=== PATIENT | female | born 1990 | race Caucasian/White ===

== ENCOUNTER 2021-01-10 13:29 | Inpatient (IN) | payer MEDICAID, OTHER ==
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
[2021-01-10 15:09] LABS: Amphetamine Screen,Urine Detected (NotDetected); Barbiturate Screen,Urine Not Detected (NotDetected); Benzodiazepines Screen,Urine Not Detected (NotDetected); Cocaine Screen,Urine Not Detected (NotDetected); Methadone Screen, Urine Not Detected (NotDetected); Opiate Screen,Urine Not Detected (NotDetected); Oxycodone Screen, Urine Not Detected (NotDetected); Phencyclidine Screen,Urine Not Detected (NotDetected); Tricyclic Antidepressant,Urine Not Detected (NotDetected); Urn Cannabinoid Scrn Detected (NotDetected)
[2021-01-10] MEDS ORDERED: LORazepam 1 MG TAB PO PRN (20:36)
[2021-01-10] MEDS ORDERED: MAG HYDROX/AL HYDROX/SIMETH 30 ML CUP PO PRN (20:36)
[2021-01-10] MEDS ORDERED: MAGNESIUM HYDROXIDE 2,400 MG/10 ML CUP PO PRN (20:36)
[2021-01-10] MEDS ORDERED: ACETAMINOPHEN TAB 325 MG TAB PO PRN (20:36)
[2021-01-10] MEDS ORDERED: LORazepam 2 MG/ML INJ IM PRN (20:56)
[2021-01-10] MEDS ORDERED: HALOPERIDOL LACTATE 5 MG/ML 1 ML VIAL IM PRN (20:57)
[2021-01-10 22:00] LABS: Appearance,Urine Cloudy (Clear); Bilirubin,Urine Negative (Negative); Blood,Urine Negative (Negative); Calcium Oxalate Crystals,Urine Many /hpf; Color,Urine Yellow; Glucose,Urine (UA) Negative (Negative); Ketones,Urine Negative (Negative); Leukocyte Esterase,Urine Negative (Negative); Mucus,Urine Occasional /hpf; Nitrite,Urine Negative (Negative); PH, Urine 5.5 (5.0-8.0); Protein,Urine Negative (Negative); Specific Gravity,Urine 1.029 (1.001-1.035); Squamous Epithelial Cell,Urine 13 /hpf (0-4); Urobilinogen,Urine <2.0 mg/dL (<2.0); WBC,Urine 3 /hpf (0-5)
[2021-01-11] MEDS: NICOTINE 14MG/24HR PATCH TRANSDERM SCH (08:02)
[2021-01-11 09:20] LABS: Basophils # (A) 0.1 k/uL (0-0.2); Basophils % (A) 1 %; Eosinophils # (A) 0.4 k/uL (0-0.7); Eosinophils % (A) 7 %; HCT 38.5 % (34.0-46.0); HGB 12.5 gm/dL (11.4-16.0); Lymphocytes # (A) 1.8 k/uL (1.0-4.8); Lymphocytes % (A) 30 %; MCH 30.3 pg (25.0-35.0); MCHC 32.5 g/dL (31.0-37.0); MCV 93.2 fL (80.0-100.0); Mean Platelet Volume 7.6; Monocytes # (A) 0.3 k/uL (0-1.0); Monocytes % (A) 5 %; Neutrophils # (A) 3.4 k/uL (1.3-7.7); Neutrophils % (A) 56 %; Platelet Count 283 k/uL (150-450); RBC 4.12 m/uL (3.80-5.40); RDW 13.6 % (11.5-15.5)
[2021-01-11 09:36] LABS: ALT 19 U/L (4-34); AST 24 U/L (14-36); African American GFR (CKD) >90 (>60 ml/min/1.73 sqM); Albumin 3.7 g/dL (3.5-5.0); Alkaline Phosphatase 59 U/L (38-126); Anion Gap 7 mmol/L; Blood Urea Nitrogen 11 mg/dL (7-17); Calcium 9.2 mg/dL (8.4-10.2); Carbon Dioxide 22 mmol/L (22-30); Chloride 107 mmol/L (98-107); Glucose 94 mg/dL (74-99); Non-African American GFR(CKD) >90 (>60 ml/min/1.73 sqM); Potassium 4.4 mmol/L (3.5-5.1); Sodium 136 mmol/L (137-145); Total Bilirubin 0.2 mg/dL (0.2-1.3); Total Protein 6.6 g/dL (6.3-8.2)
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
[2021-01-11 20:24] LABS: Chol/HDL Ratio 3.22 Ratio; LDL Cholesterol,Calculated 55.3 mg/dL (0.0-131.0)
[2021-01-11] MEDS ORDERED: SERTRALINE 50 MG TAB PO SCH (21:00)
[2021-01-12] MEDS: NICOTINE 14MG/24HR PATCH TRANSDERM SCH (08:27)
--- NOTE | 2021-01-12 11:39 | P.PN ---
Progress Note - Text Progress Note Date: 01/12/21 Clinical Problems: Substance use mood disorder, methamphetamine use disorder severe, methamphetamine withdrawal, cannabis use disorder moderate, opiate use disorder in early remission, cocaine use disorder in early remission, alcohol use disorder unspecified, history of use of LSD, psilocybin, ketamine, rule out bipolar disorder, rule out major depressive disorder, rule out cluster B personality disorder Interim history: I reviewed the medical record and interviewed the patient. She was emotionally labile, angry and tearful. She minimized her substance abuse problems and expressed frustration that we perceive her "only as a drug addict." She alleged that she has only been using "hard drugs" for the past 6 months. She perseverated on needing medications that would help stabilize her life and alleged that most effective were medications prescribed by the adolescent psychiatrist and included Vyvanse, risperidone, Tegretol and Klonopin. She understands that we are reluctant prescribers psychostimulants given her history of methamphetamine use. She is overwhelmed with her multiple psychosocial problems. She has no income or stable housing. She has no means of transportation. 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 She can't keep her appointments with [facility] to continue her psychiatric medications because she has no transportation, no phone or watch to assist her in keeping the appointments. She talked about using methamphetamine because it was "the only drug" that has been effective in helping her concentrate and focus. She continues to feel depressed, anxious, fatigued and overwhelmed by her multiple psychosocial problems. Review treatment options and agreed to a trial of Tegretol and risperidone. She requested to discontinue Zoloft because of not been effective in the past in treating her depression or leveling her mood. Mental status exam: She presented as a casually groomed 31-year-old female who was casually dressed. She made eye contact and attended to the interview. She had slight psychomotor retardation but no abnormal involuntary movements. Her speech was spontaneous, slightly pressured and consistent with her mood. Her affect was labile and she cried during the interview. She denied suicidal ideation, wishes or homicidal ideation. She expressed feelings of hopelessness, helplessness and worthlessness. She ruminated about her multiple psychosocial problems and how the treatment team is perceiving her. She did not express ideas reference, paranoid ideation or delusions. Her thinking was abstract but her associations were coherent, logical and goal directed. She denies hallucinations did not appear to be responding to internal stimuli. Assessment: She is continuing to have signs and symptoms of methamphetamine withdrawal with mood lability, fatigue and increased need for sleep. She has history of psychiatric treatment prior to the onset of drugs with diagnoses including ADHD, oppositional defiant disorder and bipolar illness. Plan: Continue inpatient treatment. Safety precautions. Discontinue Zoloft. Begin Tegretol 200 mg twice a day and Risperdal 0.5 mg twice a day; titrate medications according to clinical response and tolerance. Continue Ativan and/or Haldol when necessary for anxiety, agitation acute psychosis. Obtain collateral information from her mother. Encourage participation in therapy groups and activities. Evaluate clinical status response to treatment daily basis.
[2021-01-12] MEDS: carBAMazepine 200 MG TAB PO SCH (20:39)
[2021-01-12] MEDS: risperiDONE 0.25 MG TAB PO SCH (20:39)
--- NOTE | 2021-01-13 00:02 | P.MDCNMH ---
History of Present Illness H&P Date: 01/12/21 Chief Complaint: Medical evaluation 31-year-old female with significant past medical history Patient is here for evaluation regarding depression and suicidal ideation. She admits to using amphetamine admits to tobacco smoking denies any alcohol use. Patient is homeless She is currently complaining of symptoms suggestive of carpal tunnel syndrome and bilateral hands with pain mostly at night shooting to the fingers. Otherwise denies any fevers chills nausea vomiting coughing shortness of breath or chest pain denies any abdominal pain changes in her urinary or bowel habits Review of Systems Pertinent positives as noted in HPI. All other systems were reviewed and are negative Past Medical History Past Medical History: No Reported History Additional Past Medical History / Comment(s): ectopic History of Any Multi-Drug Resistant Organisms: None Reported Past Surgical History: No Surgical Hx Reported Additional Past Surgical History / Comment(s): fallopian tube removed Past Anesthesia/Blood Transfusion Reactions: No Reported Reaction Smoking Status: Current every day smoker - Past Family History family Family Medical History: No Reported History Medications and Allergies Home Medications Medication Instructions Recorded Confirmed Type Divalproex ER [Depakote ER] 250 mg PO TID@0900,1300,1700 01/10/21 01/10/21 History OLANZapine [ZyPREXA] 10 mg PO DAILY@2100 01/10/21 01/10/21 History Sertraline HCl [Zoloft] 25 mg PO DAILY@0900 01/10/21 01/10/21 History traZODone HCL [Desyrel] 100 mg PO HS 01/10/21 01/10/21 History Allergies Allergy/AdvReac Type Severity Reaction Status Date / Time No Known Allergies Allergy Verified 01/10/21 21:46 Physical Exam Vitals: Vital Signs Temp Pulse Resp BP 01/12/21 06:39 98.1 F 60 14 126/74 Constitutional: No acute distress, conversant, pleasant Eyes: Anicteric sclerae, moist conjunctiva, Pupils equal round reactive to light ENMT: NC/AT Oropharynx clear, no erythema, or exudates Neck: Supple, FROM, no masses, or JVD No carotid bruits No thyromegaly Lungs: Clear to auscultation Clear to percussion Normal respiratory effort, no accessory muscle use Cardiovascular: Heart regular in rate and rhythm, No murmurs, gallops, or rubs No peripheral edema Abdominal: Soft Nontender, no guarding, rebound or rigidity Abdomen moving with respiration Normoactive bowel sounds No hepatomegaly, No splenomegaly No palpable mass No abdominal wall hernia noted Skin: Normal temperature, tone, texture, turgor No induration No subcutaneous nodules No rash, lesions No ulcers Extremities: No digital cyanosis No clubbing Pedal pulses intact and symmetrical Radial pulses intact and symmetrical No calf tenderness Psychiatric: Alert and oriented to person, place and time Appropriate affect fair judgement Neuro Muscles Strength 5/5 in all 4 extremities Sensation to light touch grossly present throughout Cranial nerves II-XII grossly intact No focal sensory deficits Patient had positive [employer]'s sign in [place] sign on bilateral hands Lymphatics: no palpable cervical or supraclavicular , or inguinal lymph nodes Cranial Nerve Examination - Cranial Nerves Cranial Nerve II- Optic: Intact Cranial Nerve III- Oculomotor: Intact Cranial Nerve IV- Trochlear: Intact Cranial Nerve V- Trigeminal: Intact Cranial Nerve - Abducens: Intact Cranial Nerve VII- Facial: Intact Cranial Nerve VIII- Auditory: Intact Cranial Nerve IX- Glossopharyngeal: Intact Cranial Nerve X- Vagus: Intact Cranial Nerve XI- Accessory: Intact Cranial Nerve XII- Hypoglossal: Intact Results CBC & Chem 7: 01/11/21 08:16 01/11/21 08:16 Assessment and Plan Assessment: Depression and suicidal ideation Management per psych Carpal tunnel syndrome bilateral hands Consider wrist splint every night bilateral hands Labs reviewed Thank you for allowing us to participate in the care of this patient. We will follow peripherally. Do not hesitate to contact us with questions. Someone can be reached from the [facility] hospitalist group at all hours of the day at [phone].
[2021-01-13] MEDS: risperiDONE 0.25 MG TAB PO SCH ×2 (08:16→20:45)
[2021-01-13] MEDS: NICOTINE 14MG/24HR PATCH TRANSDERM SCH ×2 (08:16→08:19)
[2021-01-13] MEDS: carBAMazepine 200 MG TAB PO SCH ×3 (08:16→20:45)
[2021-01-13] MEDS: busPIRone HCl 5 MG TAB PO SCH ×2 (12:49→20:45)
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
[2021-01-14] MEDS: risperiDONE 0.25 MG TAB PO SCH (08:21)
[2021-01-14] MEDS: busPIRone HCl 5 MG TAB PO SCH ×2 (08:21→21:09)
[2021-01-14] MEDS: carBAMazepine 200 MG TAB PO SCH ×3 (08:22→21:10)
[2021-01-14] MEDS: NICOTINE 14MG/24HR PATCH TRANSDERM SCH (08:23)
--- NOTE | 2021-01-14 10:32 | P.PN ---
Progress Note - Text Progress Note Date: 01/14/21 Interval History: Patient was seen lying in her bed this morning and was directable and agreeable to speak with technical proposal writer in the office. Patient appeared to be in brighter spirits today and appeared to be more future oriented. She states that yesterday she got off the phone with her son who was crying about a video game however she states that she "overreacted" and had a panic attack and had to remove herself from the phone and calm herself down. She states that she is still willing to go to [facility] for rehab tomorrow however does not know how she'll get there in terms of her ride. She states that today she feels better in terms of her mood and also anxiety and wants to remain on the same dose of the BuSpar and her medications. She claims that she is still having some mild lethargy in the morning. She claims that she was able to sleep fairly last night throughout the night. She claims that today she'll be going to more groups and will also take a shower. States that her appetite is improving. She is demonstrating improvement in her irritability and her mood lability. She also spoke about feeling "embarrassed" about her drug use and the harm that she is done to her body in the past 6 months and wants to remain sober going forward for her health and also her family. At this time patient denies any current suicidal or homical ideations, intent or plan. Patient denies any auditory, visual hallucinations and denies any paranoia or delusions. Patient denies any side eff ects from the medications and has been compliant with meds. Mental Status Exam: General Appearance: Patient appears to be overweight, short in stature, stated age is alert, directable, and attempts to cooperate. Behavior: Patient is calmly seated without any agitated behavior. Not tearful today. Attempts to cooperate Speech: Patient's speech is fluent and nonpressured. Mood/Affect: Mood is improving mildly, affect is congruent Suicidality/Homicidality: Patient denies having any suicidal or homicidal ideation intent or plan. Perceptions: Patient denies any visual hallucinations and denies any auditory hallucinations Though content/process: There is no evidence of any delusional thought content and thought process is linear and goal-directed. Rambles at times. More future oriented Memory and concentration: AOX3, grossly intact for the purposes of this session Judgment and insight: Improving mildly Assessment Mood disorder unspecified, rule out bipolar disorder versus substance-induced mood disorder History of PTSD Methamphetamine abuse Cannabis use disorder mild History of opioid dependence Alcohol use disorder Nicotine dependence Plan: -Patient continues to meet criteria for inpatient psychiatric admission for symptom stabilization and safety. Patient has signed adult voluntary form and medication consent and was placed in patient's chart. -Medications: Tegretol 200 mg 3 times a day for mood stabilization. Switched Risperdal 0.5 mg daily at bedtime for mood stabilization/lability. Continue with BuSpar 15 mg twice a day for anxiety. -When necessary Ativan and Haldol for agitation/aggression. -NRT - nicotine patch -SW on board for discharge planning. Encouraged the patient to participate in milieu. Patient apparently has an intake date at [facility] Wednesday. residential mental health worker to prepare for discharge and patient's ride for tomorrow morning when she is discharged.
[2021-01-14] MEDS ORDERED: risperiDONE 0.5 MG TAB PO SCH (21:00)
[2021-01-15 01:32] VITALS: BP 127/75; PULSE 89; RESP 15; TEMP 97.4
--- NOTE | 2021-01-15 07:36 | P.DS ---
Providers Date of admission: 01/10/21 20:10 Expected date of discharge: 01/15/21 Attending physician: Sulaiman Luna MD Consults: 01/10/21 20:36 Consult Physician Routine Consulting Provider: Anthony Bermudez Consult Reason/Comments: medical management Do you want consulting provider notified?: Yes Primary care physician: Nadeem Garcia - Discharge Diagnosis(es) (1) Unspecified mood [affective] disorder Current Visit: Yes Status: Acute Priority: High (2) History of posttraumatic stress disorder (PTSD) Current Visit: Yes Status: Acute Priority: Medium (3) Methamphetamine abuse Current Visit: Yes Status: Acute Priority: High (4) Cannabis use disorder, mild, abuse Current Visit: Yes Status: Acute Priority: Medium (5) Alcohol abuse Current Visit: Yes Status: Acute Priority: Medium (6) Nicotine dependence Current Visit: Yes Status: Acute Priority: Low Hospital Course: Admission HPI: Admission note was completed by Dr. Quintero "Wanda is a 30-year-old single female admitted to the psychiatric unit voluntarily. She stated that her mother called the police to bring her to the hospital due to her mother's concern about her lifestyle. [place] is [place] in [place] [place] [place] [place] where she sleeps in an abandoned trailer on the property. She stated that the house is "like a commune" where homeless people and people with mental illness live. Nobody works and everybody "uses drugs." She does not sleep in a farmhouse because she feels it is unsafe; rather she sleeps what appears to be a dilapidated trailer on the property. She was tearful throughout the interview and at times sobbed when she talked about her life. She initially went to this property with a friend who was also drug user. Even after a 9 day hospitalization at [facility] 1 month ago she returned to this property. She had an apartment until approximately August of this year. Her mother helped helped subsidized her living in the apartment but refused to continue when Agnieszka chau relapsed to drugs. After she lost the apartment she lived in a motel until she exhausted her savings. She had also stopped working after she relapsed. She initially relapse to heroin and cocaine which she was administering intravenously. She stopped using both medications after "a couple months" but continued to use methamphetamine. She states she primarily insufflated the methamphetamine but occasionally injects. She talked about using methamphetamine to "cope" with living on the commune, settle her "racing thoughts" and help her "relax" and "focus". Her UDS was positive for amphetamine, methamphetamine and marijuana. She was most distressed that she is unable to care for her 10-year-old son. Her mother took custody of his son after she relapsed to drugs and lost the apartment. She has infrequent contact with her son since she has been living in the commune because she did not have a cell phone and no means of transportation. She complained of marked fatigue and emotional distress. She feels hopeless and helpless. She is overwhelmed by guilt over her to use of drugs and inability to care for her son. She did not describe persistent and overwhelming anxiety outside of her substance use. She does not describe experiencing obsessions or compulsions. She did also did not describe periods of elevated mood or sustained irritability that occurred at times when she was not using drugs or alcohol. She denied experiencing such psychotic symptoms as hallucinations, confusion or paranoia." Hospital course: Upon admission to the unit patient was initially emotionally labile however was directable and agreeable to commence treatment and signed adult voluntary form. Patient got along well with other patients on the unit and followed unit protocol. Patient was compliant with the medications and denied any side effects throughout hospital course. Patient was started on Tegretol and increased her dose of 200 mg 3 times a day for mood stabilization. Patient was also started on Risperdal and increased her dose of 0.5 mg daily at bedtime for mood stabilization/lability. Patient was also started on BuSpar 15 mg twice a day for anxiety. Patient spoke of her stressors and engaged in therapy both group and individual. Patient was also seen by medical team for history and physical exam. Throughout the course of the hospitalization patient gradually improved with regards to mood lability, anxiety, sleep and became more future oriented with improved insight and judgment. On the day of discharge patient denied any suicidal or homicidal ideations intent or plan denied any auditory or visual hallucinations. Patient endorsed wanting to live for her child and her sobriety. The patient denied any access to guns or weapons. Patient denied any paranoia and did not endorse any delusions. Patient does have a significant history of substance abuse and was counseled on abstaining from all substances including alcohol and marijuana. Patient will be discharged to [facility] and take the subtle to ready in for inpatient substance rehab program today. Patient was also counseled on the medications and need for regular compliance and was encouraged to follow-up with their outpatient appointment for mental health and also for primary care. Mental status exam: General Appearance: Patient appears to be stated age is alert, pleasant, and cooperative. Patient is in no acute distress and has improved hygiene and grooming Behavior: Patient is calmly seated without any agitated behavior. Speech: Patient's speech is fluent and nonpressured. Mood/Affect: Patient reports their mood is "better", affect is congruent and euthymic. Suicidality/Homicidality: Patient denies having any suicidal or homicidal ideation intent or plan. Perceptions: Patient denies any auditory or visual hallucinations. Though content/process: There is no evidence of any delusional thought content and thought process is linear and goal-directed. more future oriented Memory and concentration: AOX3, grossly intact for the purposes of this session. Can spell "WORLD" backwards correctly. Judgment and insight: improved with guarded prognosis Impression: Mood disorder unspecified, rule out bipolar disorder versus substance-induced mood disorder History of PTSD Methamphetamine abuse Cannabis use disorder mild History of opioid dependence Alcohol use disorder Nicotine dependence Plan: -Continue with discharge today as patient has improved and stabilized psychiatrically and is not currently an imminent threat to herself and/or others. Patient will remain at chronically elevated risk for harm to self and/or others due to her impulsivity and polysubstance abuse. -Continue medications: Continue Tegretol 200 mg 3 times a day for mood stabilization, Risperdal 0.5 mg daily at bedtime for mood stabilization/lability, BuSpar 15 mg twice a day for anxiety -Patient was counseled on the need for medication compliance and appropriate follow-up at mental health and also primary care for medical issues. Patient verbalized understanding and agreed. -Social work to arrange for and conduct family meeting to ensure safety upon discharge and answer any questions/concerns. Social work also to arrange for patients follow up appointments with [facility] for psychiatric care along with follow up with primary care provider. -Patient counseled on abstaining from recreational drugs and marijuana and alcohol. Was informed/educated on the adverse effects on their physical and mental health. Patient verbally agreed and understood. Patient will be discharged today and taken to [facility] to take the shuttle to [place] for inpatient substance rehab. -Patient was instructed to return to the hospital or seek immediate medical care if their psychiatric or medical symptoms do worsen or reoccur. Allergies Allergy/AdvReac Type Severity Reaction Status Date / Time No Known Allergies Allergy Verified 01/10/21 21:46 Laboratory Results WBC 6.0 k/uL (3.8-10.6) 01/11/21 08:16 RBC 4.12 m/uL (3.80-5.40) 01/11/21 08:16 Hgb 12.5 gm/dL (11.4-16.0) 01/11/21 08:16 Hct 38.5 % (34.0-46.0) 01/11/21 08:16 MCV 93.2 fL (80.0-100.0) 01/11/21 08:16 MCH 30.3 pg (25.0-35.0) 01/11/21 08:16 MCHC 32.5 g/dL (31.0-37.0) 01/11/21 08:16 RDW 13.6 % (11.5-15.5) 01/11/21 08:16 Plt Count 283 k/uL (150-450) 01/11/21 08:16 MPV 7.6 01/11/21 08:16 Neutrophils % 56 % 01/11/21 08:16 Lymphocytes % 30 % 01/11/21 08:16 Monocytes % 5 % 01/11/21 08:16 Eosinophils % 7 % 01/11/21 08:16 Basophils % 1 % 01/11/21 08:16 Neutrophils # 3.4 k/uL (1.3-7.7) 01/11/21 08:16 Lymphocytes # 1.8 k/uL (1.0-4.8) 01/11/21 08:16 Monocytes # 0.3 k/uL (0-1.0) 01/11/21 08:16 Eosinophils # 0.4 k/uL (0-0.7) 01/11/21 08:16 Basophils # 0.1 k/uL (0-0.2) 01/11/21 08:16 Sodium 136 mmol/L (137-145) L 01/11/21 08:16 Potassium 4.4 mmol/L (3.5-5.1) 01/11/21 08:16 Chloride 107 mmol/L (98-107) 01/11/21 08:16 Carbon Dioxide 22 mmol/L (22-30) 01/11/21 08:16 Anion Gap 7 mmol/L 01/11/21 08:16 BUN 11 mg/dL (7-17) 01/11/21 08:16 Creatinine 0.62 mg/dL (0.52-1.04) 01/11/21 08:16 Est GFR (CKD-EPI)AfAm >90 (>60 ml/min/1.73 sqM) 01/11/21 08:16 Est GFR (CKD-EPI)NonAf >90 (>60 ml/min/1.73 sqM) 01/11/21 08:16 Glucose 94 mg/dL (74-99) 01/11/21 08:[address] Glu mg/dL 103 01/11/21 08:16 Hemoglobin A1c 5.2 % (4.0-6.0) 01/11/21 08:16 Calcium 9.2 mg/dL (8.4-10.2) 01/11/21 08:16 Total Bilirubin 0.2 mg/dL (0.2-1.3) 01/11/21 08:16 AST 24 U/L (14-36) 01/11/21 08:16 ALT 19 U/L (4-34) 01/11/21 08:16 Alkaline Phosphatase 59 U/L (38-126) 01/11/21 08:16 Total Protein 6.6 g/dL (6.3-8.2) 01/11/21 08:16 Albumin 3.7 g/dL (3.5-5.0) 01/11/21 08:16 Triglycerides 161.00 mg/dL (0.00-149.00) H 01/11/21 08:16 Cholesterol 127.00 mg/dL (0.00-200.00) 01/11/21 08:16 LDL Cholesterol, Calc 55.3 mg/dL (0.0-131.0) 01/11/21 08:16 VLDL Cholesterol, Calc 32.20 mg/dL (5.00-40.00) 01/11/21 08:16 HDL Cholesterol 39.50 mg/dL (40.00-60.00) L 01/11/21 08:16 Cholesterol/HDL Ratio 3.22 Ratio 01/11/21 08:16 TSH 1.500 mIU/L (0.465-4.680) 01/11/21 08:16 Urine Color Yellow 01/10/21 21:34 Urine Appearance Cloudy (Clear) H 01/10/21 21:34 Urine pH 5.5 (5.0-8.0) 01/10/21 21:34 Ur Specific [place] 1.029 (1.001-1.035) 01/10/21 21:34 Urine Protein Negative (Negative) 01/10/21 21:34 Urine Glucose (UA) Negative (Negative) 01/10/21 21:34 Urine Ketones Negative (Negative) 01/10/21 21: Urine Blood Negative (Negative) 01/10/21 21: Urine Nitrite Negative (Negative) 01/10/21 21:34 Urine Bilirubin Negative (Negative) 01/10/21 21:34 Urine Urobilinogen <2.0 mg/dL (<2.0) 01/10/21 21:34 Ur Leukocyte Esterase Negative (Negative) 01/10/21 21:34 Urine WBC 3 /hpf (0-5) 01/10/21 21:34 Ur Squamous Epith Cells 13 /hpf (0-4) H 01/10/21 21:34 Calcium Oxalate Crystal Many /hpf (None) H 01/10/21 21:34 Urine Mucus Occasional /hpf (None) H 01/10/21 21:34 Urine HCG, Qual Not Detected (Not Detectd) 01/10/21 21:34 Urine Opiates Screen Not Detected (NotDetected) 01/10/21 14:37 Ur Oxycodone Screen Not Detected (NotDetected) 01/10/21 14:37 Urine Methadone Screen Not Detected (NotDetected) 01/10/21 14:37 Ur Propoxyphene Screen Not Detected (NotDetected) 01/10/21 14:37 Ur Barbiturates Screen Not Detected (NotDetected) 01/10/21 14:37 U Tricyclic Antidepress Not Detected (NotDetected) 01/10/21 14:37 Ur Phencyclidine Scrn Not Detected (NotDetected) 01/10/21 14:37 Ur Amphetamines Screen Detected (NotDetected) H 01/10/21 14:37 U Methamphetamines Scrn Detected (NotDetected) H 01/10/21 14:37 U Benzodiazepines Scrn Not Detected (NotDetected) 01/10/21 14:37 Urine Cocaine Screen Not Detected (NotDetected) 01/10/21 14:37 U Marijuana (THC) Screen Detected (NotDetected) H 01/10/21 14:37 Coronavirus (PCR) Not Detected (Not Detectd) 01/10/21 Unknown Vital Signs Temp 97.4 F L 01/15/21 01:31 Pulse 89 01/15/21 01:31 Resp 15 01/15/21 01:31 BP 127/75 01/15/21 01:31 Pulse Ox 97 01/14/21 06:56 Patient Condition at Discharge: Stable Plan - Discharge Summary Discharge Rx Participant: No New Discharge Prescriptions: New Nicotine 14Mg/24Hr Patch [Habitrol] 1 patch TRANSDERM DAILY 14 Days patch busPIRone HCL [Buspar] 15 mg PO BID 30 Days tablet risperiDONE [RisperDAL] 0.5 mg PO HS 30 Days tab carBAMazepine [TEGretol] 200 mg PO TID 30 Days tab Acetaminophen Tab [Tylenol] 650 mg PO Q4HR PRN tab PRN Reason: Pain/Discomfort Discontinued Divalproex ER [Depakote ER] 250 mg PO TID@0900,1300,1700 Sertraline HCl [Zoloft] 25 mg PO DAILY@0900 traZODone HCL [Desyrel] 100 mg PO HS OLANZapine [ZyPREXA] 10 mg PO DAILY@2100 Discharge Medication List Acetaminophen Tab [Tylenol] 650 mg PO Q4HR PRN tab 01/14/21 [Rx] Nicotine 14Mg/24Hr Patch [Habitrol] 1 patch TRANSDERM DAILY 14 Days patch 01/14/21 [Rx] busPIRone HCL [Buspar] 15 mg PO BID 30 Days tablet 01/14/21 [Rx] carBAMazepine [TEGretol] 200 mg PO TID 30 Days tab 01/14/21 [Rx] risperiDONE [RisperDAL] 0.5 mg PO HS 30 Days tab 01/14/21 [Rx] Follow up Appointment(s)/Referral(s): [facility], [facility] [Other] - 01/15/21 12:00 pm (Intake and [place] @ 12:00 pm Women's Facility: [facility] . [place], [place]) Nadeem Garcia DO [Primary Care Provider] - 1-2 days Patient Instructions/Handouts: How to Stop Smoking (DC), Mood Disorders (DC), Polysubstance Abuse (ED) Activity/Diet/Wound Care/Special Instructions: Activity and diet as tolerated. Avoid the use of street drugs and alcohol. Take all medications as prescribed. When you are in need of refills on your medications please contact your medical provider and/or outpatient psychiatrist to have this done. Please go to scheduled outpatient appointment for aftercare treatment. If symptoms return or become worse, call the crisis line at and/or go to the nearest emergency room for evaluation. Discharge Disposition: OTHER INSTITUTION NOT DEFINED
== END 2021-01-15 07:35 | DRG 885 ==
LOC: EC 13:29 → 3MHU 20:10
PROVIDERS: ADMIT Psychiatry & Neurology Psychiatry; ATTEND Psychiatry & Neurology Psychiatry
DX: F39 Unspecified mood [affective] disorder (principal); R45.851 Suicidal ideations; F15.23 Other stimulant dependence with withdrawal; F15.24 Other stimulant dependence with stimulant-induced mood disorder; F10.10 Alcohol abuse, uncomplicated; F14.11 Cocaine abuse, in remission; F11.11 Opioid abuse, in remission; F12.20 Cannabis dependence, uncomplicated; Z20.822 Contact with and (suspected) exposure to COVID-19; F43.10 Post-traumatic stress disorder, unspecified; F90.9 Attention-deficit hyperactivity disorder, unspecified type; F91.3 Oppositional defiant disorder; G56.03 Carpal tunnel syndrome, bilateral upper limbs; F17.210 Nicotine dependence, cigarettes, uncomplicated; Z71.6 Tobacco abuse counseling; Z71.41 Alcohol abuse counseling and surveillance of alcoholic; Z71.51 Drug abuse counseling and surveillance of drug abuser; Z79.899 Other long term (current) drug therapy; Z90.79 Acquired absence of other genital organ(s); Z87.42 Personal history of other diseases of the female genital tract; Z98.890 Other specified postprocedural states; Z59.00 Homelessness unspecified
CPT/HCPCS: 80053; 80061; 80306; 81001; 81025; 83036; 84443; 85025; 87635; 99285